=== PATIENT | male | born 1985 | race Two or more races ===

== ENCOUNTER 2016-11-02 16:39 | Emergency (ER) | payer BC ==
[~2016-11-02] VITALS: Ht 177.8 cm; Wt 90.7 kg
[2016-11-02 16:47] VITALS: BP_SYST 138
--- NOTE | 2016-11-02 16:53 | NUR ---
Patient to ER bed 7 to gown for evaluation. Side rails up. Report given to Malou MACKAY.
--- NOTE | 2016-11-02 16:55 | NUR ---
ER Dr. Freed at bedside examining patient.
--- NOTE | 2016-11-02 16:57 | NUR ---
Pt came into the ER in stable condition. Pt c/o left big toe and foot pain 7/10 w/ swelling. Pt stated that he has been having bilat heel pain x1 wk and today noticed increased pain and swelling to left foot. Pt stated that he took Tylenol 1gm at 1500 this afternoon. Pt denies any medical hx. No acute distress noted at this time, will continue to monitor
[2016-11-02] MEDS ORDERED: KETOROLAC TROMETHAMINE 60 MG/2 ML VIAL IM ONE (17:00)
--- NOTE | 2016-11-02 17:04 | NUR ---
Pt refused Toradol IM at this time, pt stated that the pain is tolerable at this time. Pt stated he will let me know if pain becomes worsened. Dr. Freed made aware.
[2016-11-02 17:28] LABS: BASOPHILS # (AUTO) 0.1 K/uL (0.0-0.2); BASOPHILS % (AUTO) 1.9 % (0.0-2.0); EOSINOPHILS % (AUTO) 0.6 % (0.0-4.0); HEMATOCRIT 44.9 % (36-54); HEMOGLOBIN 15.1 g/dL (14.0-18.0); LYMPHOCYTES # (AUTO) 1.5 K/uL (1.0-5.5); LYMPHOCYTES % (AUTO) 21.8 % (20.5-51.5); MEAN CORPUSCULAR HEMOGLOBIN 29 pg (27-31); MEAN CORPUSCULAR HGB CONC 34 % (32-36); MEAN CORPUSCULAR VOLUME 85 fL (79.0-98.0); MONOCYTES # (AUTO) 0.9 K/uL (0.0-1.0); MONOCYTES % (AUTO) 13.3 % (1.7-9.3); NEUTROPHILS # (AUTO) 4.6 K/uL (1.8-7.7); NEUTROPHILS % (AUTO) 62.4 % (40.0-70.0); PLATELET COUNT (AUTO) 242 K/uL (130-430); RED CELL DISTRIBUTION WIDTH 12.3 % (9.0-15.0); WHITE BLOOD COUNT (AUTO) 7.1 K/uL (4.8-10.8)
[2016-11-02 17:33] LABS: CALCIUM 8.9 mg/dL (8.4-11.0); CREATININE 0.81 mg/dL (0.55-1.30); POTASSIUM 3.7 mmol/L (3.5-5.1)
[2016-11-02 17:38] LABS: ALBUMIN 4.2 g/dL (3.4-4.8); TOTAL BILIRUBIN 0.9 mg/dL (0.0-1.0); TOTAL PROTEIN, SERUM 8.4 g/dL (6.4-8.3); URIC ACID 5.2 mg/dL (2.4-7.0)
[2016-11-02 18:24] VITALS: BP_SYST 138
--- NOTE | 2016-11-02 18:24 | NUR ---
Patient given written and verbal discharge instructions and verbalizes understanding. ER MD Freed discussed with patient the results and treatment provided. Patient in stable condition. ID arm band removed. Rx of [place] and Motrin 800 given. Patient educated on pain management and to follow up with PMD. Pain Scale 2/10. Opportunity for questions provided and answered.
== END 2016-11-02 18:24 | disposition home or self-care (01) ==
LOC: SED 16:39
DX: M25.572 Pain in left ankle and joints of left foot (principal)
CPT/HCPCS: 36415; 80053; 84550-TC; 85025; 99285

== ENCOUNTER 2018-06-01 18:05 | Emergency (ER) | payer BC ==
[~2018-06-01] VITALS: Ht 180.3 cm; Wt 93.0 kg
[2018-06-01 18:21] VITALS: BP_SYST 150
[2018-06-01] MEDS ORDERED: IBUPROFEN 800 MG TABLET PO ONE (19:15)
[2018-06-01 20:04] VITALS: BP_SYST 144
== END 2018-06-01 20:04 | disposition home or self-care (01) ==
LOC: SED 18:05
DX: S62.522A Displaced fracture of distal phalanx of left thumb, initial encounter for closed fracture (principal); R03.0 Elevated blood-pressure reading, without diagnosis of hypertension; W22.8XXA Striking against or struck by other objects, initial encounter; Y93.89 Activity, other specified; Y92.89 Other specified places as the place of occurrence of the external cause; Y99.8 Other external cause status
CPT/HCPCS: 73140-TC; 99284